=== PATIENT | female | born 1940 | race Caucasian/White ===

== ENCOUNTER 2016-11-29 11:58 | Observation (INO) | payer OTHER, BC ==
[~2016-11-29] VITALS: Ht 172.7 cm; Wt 82.4 kg
[~2016-11-29 11:58] MED LIST: PREMPRO 0.31 TABLET PO; TIMOLOL MALEATE15 M1 BOTH EYES; ULTRAM50 MG PO
[2016-11-29 13:08] LABS: HEMATOCRIT 41.1 % (36.0-46.0); MCH 30.4 PG (29.0-34.0); MCHC 33.3 G/DL (30.0-36.0); MCV 91.3 FL (83-99); MEAN PLAT.VOLUME 8.8 uM^3 (9.5-12.4); PLATELET COUNT 248 K/uL (156-360); RBC DIS.WIDTH-CV 13.2 % (11.8-14.6); RBC DIS.WIDTH-SD 44.3 % (39-53); WHITE BLOOD COUNT 7.6 K/uL (4.1-10.2)
[2016-11-29 13:17] LABS: CHLORIDE 106 mEq/L (99-109); SODIUM 141 mEq/L (136-147)
[2016-11-29 13:18] LABS: GLUCOSE 120 mg/dL (70-99)
[2016-11-29 13:20] LABS: ANION GAP 11 MEQ/L (2-14)
[2016-11-29 13:22] LABS: GFR ESTIMATE (CALCULATED) > 59 mL/min/
[2016-11-29 13:23] LABS: UREA NITROGEN (BUN) 18 mg/dL (9-23)
[2016-11-29 13:29] LABS: TROP-I INTERPRETATION NEGATIVE; TROPONIN-I < 0.01 ng/mL (0.0-0.30)
[2016-11-29] MEDS ORDERED: TYLENOL EXTRA500 MG PO (16:12)
[2016-11-29] MEDS ORDERED: ALEVE220 MG PO (16:12)
[2016-11-29] MEDS ORDERED: NASACORT10.8 ML BOTH NARES (16:12)
[2016-11-29] MEDS ORDERED: BENADRYL ALLERG25 MG PO (16:12)
[2016-11-29] MEDS ORDERED: ONE-A-DAY ESSE1 EAC1 PO (16:12)
[2016-11-29] MEDS ORDERED: ASCORBIC ACID500 M3 PO (16:12)
[2016-11-29 17:48] VITALS: BP 175/79
[2016-11-29 19:33] VITALS: BP 141/66
[2016-11-30 00:32] VITALS: BP 179/81
[2016-11-30 00:40] VITALS: BP 142/80
[2016-11-30 04:01] VITALS: BP 185/88
[2016-11-30 04:40] VITALS: BP 162/90
[2016-11-30 05:58] LABS: BASOPHIL COUNT 0.1 K/uL (0-0.1); EOSINOPHIL (%) 4.9 % (0-5); EOSINOPHIL COUNT 0.4 K/uL (0-0.3); HEMATOCRIT 37.7 % (36.0-46.0); IMMATURE GRANULOCYTE (%) 0.4 % (0.0-0.7); INSTRUMENT ABS NEUTROPHIL CT 3.9 K/uL; LYMPHOCYTE COUNT 2.5 K/uL (1.0-2.8); MCH 31.4 PG (29.0-34.0); MCHC 33.7 G/DL (30.0-36.0); MCV 93.1 FL (83-99); MEAN PLAT.VOLUME 9.1 uM^3 (9.5-12.4); MONOCYTE (%) 9.7 % (3-12); MONOCYTE COUNT 0.7 K/uL (0-0.8); NEUTROPHIL (%) 51.4 % (45-76); NEUTROPHIL COUNT 3.9 K/uL (1.8-6.4); PLATELET COUNT 233 K/uL (156-360); RBC DIS.WIDTH-CV 13.6 % (11.8-14.6); RBC DIS.WIDTH-SD 46.5 % (39-53); RED BLOOD COUNT 4.05 M/uL (3.80-5.20); WHITE BLOOD COUNT 7.5 K/uL (4.1-10.2)
[2016-11-30 06:30] LABS: ALKALINE PHOSPHATASE 71 IU/L (3-129); ANION GAP 10 MEQ/L (2-14); CHLORIDE 106 MEQ/L (99-109); DIRECT BILIRUBIN 0.1 mg/dL (0.0-0.3); GFR ESTIMATE (CALCULATED) > 59 mL/min/; GLUCOSE 104 mg/dL (70-99); POTASSIUM 4.2 MEQ/L (3.7-5.4); SAMPLE HEMOLYSIS CHECK 0; SAMPLE ICTERIC CHECK 0; SAMPLE LIPEMIA CHECK 0; SODIUM 142 MEQ/L (136-147); TOTAL BILIRUBIN 0.6 MG/DL (0.0-1.0); UREA NITROGEN (BUN) 16 mg/dL (9-23)
[2016-11-30 07:27] VITALS: BP 169/79
[2016-11-30] MEDS ORDERED: LISINOPRIL10 MG PO (09:58)
== END 2016-11-30 11:01 | disposition home or self-care (01) ==
LOC: EME 11:58 → 5WEST 15:37 → EDOF 15:37 → ENRESERV 15:39 → 5WEST 17:26
PROVIDERS: Emergency Medicine; Internal Medicine
DX: R55 Syncope and collapse (principal); G47.33 Obstructive sleep apnea (adult) (pediatric); H40.9 Unspecified glaucoma; R42 Dizziness and giddiness; R51 Headache; I10 Essential (primary) hypertension; S00.83XA Contusion of other part of head, initial encounter; W22.8XXA Striking against or struck by other objects, initial encounter; W07.XXXA Fall from chair, initial encounter
CPT/HCPCS: 70450; 71010; 80048; 80076; 84484; 85025; 85027; 93005; 99281; 99284; G0378